=== PATIENT | male | born 1970 | race Caucasian/White ===

== ENCOUNTER 2022-10-18 05:54 | Emergency (ER) | payer OTHER ==
[~2022-10-18] VITALS: Ht 180.3 cm; Wt 81.0 kg
== END 2022-10-18 07:55 | disposition home or self-care (01) ==
LOC: EDBD 05:54 → ER 05:54
DX: F41.9 Anxiety disorder, unspecified (principal); F15.10 Other stimulant abuse, uncomplicated; F17.210 Nicotine dependence, cigarettes, uncomplicated
CPT/HCPCS: 93005